=== PATIENT | male | born 1980 ===

== ENCOUNTER 2019-04-28 07:05 | Observation (INO) | payer BC ==
[2019-04-28] MEDS ORDERED: Aspirin 325 mg EC Tablets PO STA (07:35)
[2019-04-28] MEDS ORDERED: Aspirin 325 mg EC Tablets PO ONE (08:11)
--- NOTE | 2019-04-28 08:30 | C.PDOC ---
History Of Present Illness 38 y/o male,w/PMhx of hypercholesterolemia, presents to the ER complaining of left sided chest pain which has been present for 24 hours. Patient states that the pain is constant,dull, and non-radiating. Patient reports that he has some associated diaphoresis. He notes that he had similar symptoms for 2-3 days approximately 2 months ago. He states that he did not seek medical attention at the time.Denies having SOB, fever,chills, headache,dizziness, nausea, and vomiting. Time Seen by Provider: 04/28/19 07:30 Chief Complaint (Nursing): Chest Pain History Per: Patient History/Exam Limitations: no limitations Onset/Duration Of Symptoms: Days Current Symptoms Are (Timing): Still Present Severity: Moderate Past Medical History Reviewed: Historical Data, Nursing Documentation, Vital Signs Vital Signs: Last Vital Signs Temp 98.8 F 04/28/19 07:10 Pulse 100 H 04/28/19 07:10 Resp 18 04/28/19 07:10 BP 136/82 04/28/19 07:10 Pulse Ox 97 04/28/19 07:10 Primary Care Provider: Non [facility] Provider, - Medical History PMH: Hypercholesterolemia Other Surgeries: Hx of surgeries Family History: States: No Known Family Hx - Social History Hx Alcohol Use: Yes Hx Substance Use: No - Immunization History Hx Tetanus Toxoid Vaccination: Yes Hx Influenza Vaccination: Yes Hx Pneumococcal Vaccination: No Review Of Systems Except As Marked, All Systems Reviewed And Found Negative. Constitutional: Positive for: Sweats. Negative for: Fever, Chills Cardiovascular: Positive for: Chest Pain Respiratory: Negative for: Shortness of Breath Gastrointestinal: Negative for: Nausea, Vomiting, Abdominal Pain Physical Exam - Physical Exam Appears: No Acute Distress, Other (awake,alert) Skin: Normal Color, Warm, Dry Head: Atraumatic, Normacephalic Eye(s): bilateral: Normal Inspection Nose: Normal Oral Mucosa: Moist Neck: Supple Chest: Symmetrical Cardiovascular: Rhythm Regular Respiratory: Normal Breath Sounds, No Rales, No Rhonchi, No Wheezing Gastrointestinal/Abdominal: Normal Exam, Soft, No Tenderness, No Guarding, No Rebound Neurological/Psych: Oriented x3, Normal Speech ED Course And Treatment - Laboratory Results Result Diagrams: 04/28/19 07:45 04/28/19 07:45 O2 Sat by Pulse Oximetry: 97 (RA) Pulse Ox Interpretation: Normal - Other Rad CXR X-Ray: Viewed By Me, Read By Radiologist Interpretation: Date of service: 04/28/2019. HISTORY: chest pain. COMPARISON: No prior. TECHNIQUE: Chest PA and lateral views. FINDINGS: LUNGS: No active pulmonary disease. PLEURA: No significant pleural effusion identified. No pneumothorax apparent. CARDIOVASCULAR: No aortic atherosclerotic calcification present. Normal cardiac size. No pulmonary vascular congestion. OSSEOUS STRUCTURES: Minor multilevel degenerative spondylosis of the thoracic spine. VISUALIZED UPPER ABDOMEN: Normal. OTHER FINDINGS: None. IMPRESSION: No active disease. Medical Decision Making Medical Decision Making: Plan: --Labs --EKG --CXR --Aspirin PO Disposition Discussed With Dr.: Porter Inman - Disposition Disposition: HOSPITALIZED Disposition Time: 08:29 Condition: GUARDED - POA Present On Arrival: None - Clinical Impression Clinical Impression: Chest pain, Abnormal finding on EKG - Scribe Statement The provider has reviewed the documentation as recorded by the Davidibleatha Davalos Provider Attestation: All medical record entries made by the Scribe were at my direction and personally dictated by me. I have reviewed the chart and agree that the record accurately reflects my personal performance of the history, physical exam, medical decision making, and the department course for this patient. I have also personally directed, reviewed, and agree with the discharge instructions and disposition. Decision To Admit - Pt Status Changed To: Hospital Disposition Of: Observation - . Bed Request Type: Telemetry Admitting Physician: Porter Inman Patient Diagnosis: Chest pain, Abnormal finding on EKG
[2019-04-28 08:44] LABS: BASO # 0.1 K/uL (0.0-0.2); BASO % 0.9 % (0.0-2.0); EOS # 0.1 K/uL (0.0-0.7); EOS % 1.4 % (0.0-4.0); HEMOGLOBIN 13.9 g/dL (12.0-18.0); LYMPH # 1.1 K/uL (1.0-4.3); LYMPH % 18.7 % (20.0-40.0); MEAN CELL VOLUME 88.1 fL (80.0-94.0); MEAN CORPUSCULAR HEMOGLOBIN 30.4 pg (27.0-31.0); MEAN CORPUSCULAR HGB CONC 34.5 g/dL (33.0-37.0); MEAN PLATELET VOLUME 8.4 fL (7.2-11.7); MONO # 0.8 K/uL (0.0-0.8); MONO % 13.3 % (0.0-10.0); NEUT % 65.7 % (50.0-75.0); NRBC % 0.1 % (0.0-2.0); RBC 4.58 Mil/uL (4.40-5.90); RED CELL DISTRIBUTION WIDTH 13.6 % (11.5-14.5)
[2019-04-28 09:04] LABS: BARBITURATES, UR NEGATIVE (NEGATIVE); BENZODIAZEPINES, UR NEGATIVE (NEGATIVE); OPIATES, UR NEGATIVE (NEGATIVE); PHENCYCLIDINE, UR NEGATIVE (NEGATIVE)
--- NOTE | 2019-04-28 09:10 | RAD ---
Date of service: 04/28/2019 HISTORY: chest pain COMPARISON: No prior. TECHNIQUE: Chest PA and lateral views FINDINGS: LUNGS: No active pulmonary disease. PLEURA: No significant pleural effusion identified. No pneumothorax apparent. CARDIOVASCULAR: No aortic atherosclerotic calcification present. Normal cardiac size. No pulmonary vascular congestion. OSSEOUS STRUCTURES: Minor multilevel degenerative spondylosis of the thoracic spine. VISUALIZED UPPER ABDOMEN: Normal. OTHER FINDINGS: None. IMPRESSION: No active disease.
[2019-04-28 09:14] LABS: ALB/GLOB RATIO 1.2 (1.0-2.1); ALBUMIN 4.6 g/dL (3.5-5.0); ALT/SGPT 28 U/L (21-72); AST/SGOT 30 U/L (17-59); BLOOD UREA NITROGEN 17 mg/dL (9-20); CALCIUM 9.6 mg/dl (8.6-10.4); GFR NON-AFRICAN AMERICAN > 60
[2019-04-28 09:18] LABS: B-TYPE NATRIURETIC PEPTIDE 29.7 pg/mL (0-450)
[2019-04-28 10:18] VITALS: RESP 20
--- NOTE | 2019-04-28 12:03 | CP.PCM.HP ---
Past Patient History - Past Social History Smoking Status: Never Smoked - CARDIAC Hx Hypercholesterolemia: Yes - PSYCHIATRIC Hx Substance Use: No - SURGICAL HISTORY Hx Surgeries: Yes Other/Comment: Vasectomy - ANESTHESIA Hx Anesthesia: Yes Hx Anesthesia Reactions: No Meds Allergies/Adverse Reactions: Allergies Allergy/AdvReac Type Severity Reaction Status Date / Time No Known Allergies Allergy Verified 04/28/19 07:13 Results - Vital Signs Recent Vital Signs: Last Vital Signs Temp 98.8 F 04/28/19 07:10 Pulse 96 H 04/28/19 10:17 Resp 20 04/28/19 10:17 BP 111/67 04/28/19 10:17 Pulse Ox 99 04/28/19 10:17 - Labs Result Diagrams: 04/28/19 07:45 04/28/19 07:45 Labs: Laboratory Results - last 24 hr 04/28/19 04/28/19 04/28/19 07:45 07:45 07:45 WBC 6.0 RBC 4.58 Hgb 13.9 Hct 40.3 MCV 88.1 MCH 30.4 MCHC 34.5 RDW 13.6 Plt Count 301 MPV 8.4 Neut % (Auto) 65.7 Lymph % (Auto) 18.7 L [place] % (Auto) 13.3 H Eos % (Auto) 1.4 Baso % (Auto) 0.9 Neut # (Auto) 4.0 Lymph # (Auto) 1.1 [place] # (Auto) 0.8 Eos # (Auto) 0.1 Baso # (Auto) 0.1 Sodium 137 Potassium 3.7 Chloride 99 Carbon Dioxide 23 Anion Gap 18 BUN 17 Creatinine 0.9 Est GFR ( Amer) > 60 Est GFR (Non-Af Amer) > 60 Random Glucose 102 Calcium 9.6 Total Bilirubin 0.6 AST 30 ALT 28 Alkaline Phosphatase 71 Troponin I < 0.0120 NT-Pro-B Natriuret Pep 29.7 Total Protein 8.5 H Albumin 4.6 Globulin 3.9 Albumin/Globulin Ratio 1.2 Urine Opiates Screen Negative Urine Methadone Screen Negative Ur Barbiturates Screen Negative Ur Phencyclidine Scrn Negative Ur Amphetamines Screen Negative U Benzodiazepines Scrn Negative U Oth Cocaine Metabols Negative U Cannabinoids Screen Negative
[2019-04-28 12:59] VITALS: BP 111/68; PULSE 92; TEMP 98; O2SAT 97
[2019-04-28 13:36] LABS: CK-MB 0.38 ng/mL (0.0-3.38)
--- NOTE | 2019-04-28 14:41 | CP.PCM.CON ---
History of Present Illness - History of Present Illness History of Present Illness: Abimael Green, PGY1 Consult Note for Dr. Taylor: CC: Chest pain Consulted For: EKG changes Pt is a 38 yo M with no significant pmhx of HLD who presents for the chest pain that he had been feeling since the prior night. Pt states that the pain is worse with inspiration and is located on the L side of his chest. Pt reports that the pain is constant and is not related to position or exertion. Pt denies improvement of pain with rest. Pt also states that he has been having cold sweats last night but today denies any fevers, or chills. Pt also denies any current lightheadedness, dizziness, palpiations, SOB, cough, abd pain, n/v, c/d or dysuria. Pt admits to the chest pain with inspiration. Review of Systems - Review of Systems Review of Systems: 12 point ROS reviewed and negative except noted in HPI above. Past Patient History - Past Social History Smoking Status: Never Smoked - CARDIAC Hx Hypercholesterolemia: Yes - PSYCHIATRIC Hx Substance Use: No - SURGICAL HISTORY Hx Surgeries: Yes Other/Comment: Vasectomy - ANESTHESIA Hx Anesthesia: Yes Hx Anesthesia Reactions: No Meds Allergies/Adverse Reactions: Allergies Allergy/AdvReac Type Severity Reaction Status Date / Time No Known Allergies Allergy Verified 04/28/19 07:13 - Medications Medications: Current Medications Rosuvastatin Calcium (Crestor) 20 mg PO HS VERONICA Physical Exam - Constitutional Appears: Non-toxic, No Acute Distress - Head Exam Head Exam: ATRAUMATIC, NORMAL INSPECTION, NORMOCEPHALIC - Eye Exam Eye Exam: EOMI, Normal appearance, PERRL - ENT Exam ENT Exam: Mucous Membranes Moist - Respiratory Exam Respiratory Exam: Clear to Auscultation Bilateral, NORMAL BREATHING PATTERN. absent: Accessory Muscle Use, Chest Wall Tenderness, Rales, Rhonchi, Wheezes, Respiratory Distress, Stridor - Cardiovascular Exam Cardiovascular Exam: RRR, +S1, +S2. absent: Gallop, Rubs - GI/Abdominal Exam GI & Abdominal Exam: Normal Bowel Sounds, Soft. absent: Distended, Firm, Guarding, Mass, Rebound, Rigid - Extremities Exam Extremities exam: Positive for: normal capillary refill, normal inspection, pedal pulses present. Negative for: calf tenderness - Back Exam Back exam: NORMAL INSPECTION. absent: CVA tenderness (L), CVA tenderness (R) - Neurological Exam Neurological exam: Alert, Oriented x3 - Psychiatric Exam Psychiatric exam: Normal Affect, Normal Mood - Skin Skin Exam: Dry, Normal Color, Warm Results - Vital Signs Recent Vital Signs: Last Vital Signs Temp 98 F 04/28/19 12:45 Pulse 92 H 04/28/19 12:45 Resp 20 04/28/19 12:45 BP 111/68 04/28/19 12:45 Pulse Ox 97 04/28/19 12:45 - Labs Result Diagrams: 04/28/19 07:45 04/28/19 07:45 Labs: Laboratory Results - last 24 hr 04/28/19 04/28/19 04/28/19 07:45 07:45 07:45 WBC 6.0 RBC 4.58 Hgb 13.9 Hct 40.3 MCV 88.1 MCH 30.4 MCHC 34.5 RDW 13.6 Plt Count 301 MPV 8.4 Neut % (Auto) 65.7 Lymph % (Auto) 18.7 L [place] % (Auto) 13.3 H Eos % (Auto) 1.4 Baso % (Auto) 0.9 Neut # (Auto) 4.0 Lymph # (Auto) 1.1 [place] # (Auto) 0.8 Eos # (Auto) 0.1 Baso # (Auto) 0.1 Sodium 137 Potassium 3.7 Chloride 99 Carbon Dioxide 23 Anion Gap 18 BUN 17 Creatinine 0.9 Est GFR ( Amer) > 60 Est GFR (Non-Af Amer) > 60 Random Glucose 102 Calcium 9.6 Total Bilirubin 0.6 AST 30 ALT 28 Alkaline Phosphatase 71 Total Creatine Kinase CK-MB (Mass) Troponin I < 0.0120 NT-Pro-B Natriuret Pep 29.7 Total Protein 8.5 H Albumin 4.6 Globulin 3.9 Albumin/Globulin Ratio 1.2 Urine Opiates Screen Negative Urine Methadone Screen Negative Ur Barbiturates Screen Negative Ur Phencyclidine Scrn Negative Ur Amphetamines Screen Negative U Benzodiazepines Scrn Negative U Oth Cocaine Metabols Negative U Cannabinoids Screen Negative 04/28/19 12:58 WBC RBC Hgb Hct MCV MCH MCHC RDW Plt Count MPV Neut % (Auto) Lymph % (Auto) [place] % (Auto) Eos % (Auto) Baso % (Auto) Neut # (Auto) Lymph # (Auto) [place] # (Auto) Eos # (Auto) Baso # (Auto) Sodium Potassium Chloride Carbon Dioxide Anion Gap BUN Creatinine Est GFR ( Amer) Est GFR (Non-Af Amer) Random Glucose Calcium Total Bilirubin AST ALT Alkaline Phosphatase Total Creatine Kinase 224 H CK-MB (Mass) 0.38 Troponin I < 0.0120 NT-Pro-B Natriuret Pep Total Protein Albumin Globulin Albumin/Globulin Ratio Urine Opiates Screen Urine Methadone Screen Ur Barbiturates Screen Ur Phencyclidine Scrn Ur Amphetamines Screen U Benzodiazepines Scrn U Oth Cocaine Metabols U Cannabinoids Screen Assessment & Plan - Assessment and Plan (Free Text) Plan: Non-Anginal Chest pain associated with EKG changes: - Pt does not have chest pain that is substernal, nor is it exacerbated by activity or relieved by rest. - Pt is asymptomatic at this time - EKG changes noted to be early repolarization phenomenon. - Cont statin
--- NOTE | 2019-04-28 15:12 | CP.PCM.PN ---
Subjective - Date & Time of Evaluation Date of Evaluation: 04/28/19 Time of Evaluation: 15:12 - Subjective Subjective: alert, oriented x3, denies sob or chest pains, NAD. Objective - Vital Signs/Intake and Output Vital Signs (last 24 hours): Temp Pulse Resp BP Pulse Ox 98 F 92 H 20 111/68 97 04/28/19 12:45 04/28/19 12:45 04/28/19 12:45 04/28/19 12:45 04/28/19 12:45 - Medications Medications: Current Medications Rosuvastatin Calcium (Crestor) 20 mg PO HS VERONICA - Labs Labs: 04/28/19 07:45 04/28/19 07:45 Assessment and Plan - Assessment and Plan (Free Text) Assessment: 38 year old male admitted with chest pain, seen and examined. Alert and o rientedx3, denies sob or chest pains. SABINE and EKG negative, cleared by the cardiologyst. Discussed with DR Mikel Inman, plan to discharge home today, advised to follow up with PMD in 1 week.
--- NOTE | 2019-04-28 17:16 | CARD ---
APPROVED REPORT Date of service: 04/28/2019 EXAM: Two-dimensional and M-mode echocardiogram with Doppler and color Doppler. INDICATION Abnormal EKG/Arrhythmia Chest Pain RISK FACTORS Hyperlipidemia 2D DIMENSIONS IVSd1.0 (0.7-1.1cm)LVDd4.2 (3.9-5.9cm) PWd1.0 (0.7-1.1cm)LVDs2.9 (2.5-4.0cm) FS (%) 30.2 %LVEF (%)58.0 (>50%) LVEF (Nunez's)60.94 % M-Mode DIMENSIONS Left Atrium (MM)3.35 (2.5-4.0cm)IVSd0.72 (0.7-1.1cm) Aortic Root2.71 (2.2-3.7cm)LVDd4.79 (4.0-5.6cm) Aortic Cusp Exc.2.14 (1.5-2.0cm)PWd0.72 (0.7-1.1cm) FS (%) 38 %LVDs2.98 (2.0-3.8cm) LVEF (%)68 (>50%) Mitral Valve MV E Zmoacuqx32.4cm/sMV A Ooqfdnzt74.5cm/sE/A ratio1.6 TDI Lateral E' Peak V11.61cm/sMedial E' Peak V7.26cm/sE/Lateral E'5.7 E/Medial E'9.1 Tricuspid Valve TR Peak [id number]/sTR Peak [id number] LEFT VENTRICLE The left ventricle is normal size. There is normal left ventricular wall thickness. The left ventricular function is normal. The left ventricular ejection fraction is within the normal range. There is normal LV segmental wall motion. The left ventricular diastolic function is normal. RIGHT VENTRICLE The right ventricle is normal size. ATRIA The left atrium size is normal. The right atrium size is normal. AORTIC VALVE The aortic valve is normal in structure. MITRAL VALVE Mitral regurgitation is trace. TRICUSPID VALVE There is trace tricuspid regurgitation. <Conclusion> Normal LV systolic function. Normal chamber size. Trace MR. Trace TR,
== END 2019-04-28 16:10 | disposition home or self-care (01) ==
LOC: C.ER 07:05 → C.9E 08:31 → C.5S 11:58
PROVIDERS: ADMIT Internal Medicine Nephrology; ATTEND Internal Medicine Nephrology
DX: R94.31 Abnormal electrocardiogram [ECG] [EKG] (principal); R07.1 Chest pain on breathing; E78.00 Pure hypercholesterolemia, unspecified; R61 Generalized hyperhidrosis
CPT/HCPCS: 36415; 71046; 80053; 83880; 84484; 85025; 93306; G0378; G0480